=== PATIENT | male | born 1985 | race Caucasian/White ===

== ENCOUNTER 2018-02-05 17:28 | Observation (INO) | payer SELFPAY ==
[2018-02-05] MEDS ORDERED: Ondansetron 4 MG/2 ML SDV IVPUSH ONE (17:55)
[2018-02-05] MEDS ORDERED: Sodium Chloride 0.9% 1,000 ML IV ONE ×3 (17:55→22:59)
--- NOTE | 2018-02-05 17:57 | EDM.PDOC ---
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 Since he is fairly heat intolerant, he is up here for work which he starts tomorrow. After being outside for short periods in the ED because?shaky and nauseous, he has not been able to keep most foods down however he has been able to keep fruits down. At rest he has no symptoms as below however he states on standing he does become nauseous No fever chills sweats no chest pain shortness breath headache dizziness palpitation about a urine symptoms ] Review of systems: As per history of present illness and below otherwise all systems reviewed and negative. Past medical history: As per history of present illness and as reviewed below otherwise noncontributory. Surgical history: As per history of present illness and as reviewed below otherwise noncontributory. Social history: No reported history of drug or alcohol abuse. Family history: As per history of present illness and as reviewed below otherwise noncontributory. Physical exam: HEENT: Atraumatic, normocephalic, pupils reactive, negative for conjunctival pallor or scleral icterus, mucous membranes moist, throat clear, neck supple, nontender, trachea midline. Lungs: Clear to auscultation, breath sounds equal bilaterally, chest nontender. Heart: S1S2, regular, negative for clicks, rubs, or JVD. Abdomen: Soft, nondistended, nontender. Negative for masses or hepatosplenomegaly. Negative for costovertebral tenderness. Pelvis: Stable nontender. Genitourinary: Deferred. Rectal: Deferred. Extremities: Atraumatic, negative for cords or calf pain. Neurovascular unremarkable. Neuro: Awake, alert, oriented. Cranial nerves II through XII unremarkable. Cerebellum unremarkable. Motor and sensory unremarkable throughout. Exam nonfocal. Diagnostics: [CBC CMP UA CPK troponin EKG ] Therapeutics: [ liter normal saline Zofran 8 mg IV ] Impression: [ vomiting ] Definitive disposition and diagnosis as appropriate pending reevaluation and review of above. - Related Data Allergies Allergy/AdvReac Type Severity Reaction Status Date / Time Penicillins Allergy Other Verified 02/05/18 18:50 Home Meds: Home Meds Calcium Carb/Magnesium Hydrox [Rolaids Chewable Tablet] 1 tab PO Q2HR PRN [History] Course - Vital Signs Last Recorded V/S: Last Vital Signs Temp 36.4 C 02/05/18 18:46 Pulse 84 02/05/18 18:46 Resp 18 02/05/18 18:46 BP 130/95 H 02/05/18 18:46 Pulse Ox 95 02/05/18 18:46 - Orders/Labs/Meds Orders: Active Orders 24 hr Category Date Time Status EKG Documentation Completion [RC] STAT Care 02/05/18 17:34 Inactive EKG Documentation Completion [RC] STAT Care 02/05/18 18:17 Active UA W/MICROSCOPIC [URIN] Stat Lab 02/05/18 17:34 Ordered Sodium Chloride 0.9% [Normal Saline] 1,000 ml Med 02/05/18 19:05 Active IV STAT Medication Orders Sodium Chloride (Normal Saline) 1,000 mls @ 999 mls/hr IV STAT ONE Stop: 02/05/18 20:05 Last Admin: 02/05/18 19:27 Dose: 999 mls/hr Labs: Laboratory Tests 02/05/18 02/05/18 02/05/18 Range/Units 17:04 17:54 17:54 WBC 5.65 (4.0-11.0) K/uL RBC 5.66 (4.50-5.90) M/uL Hgb 19.0 H (13.0-17.0) g/dL Hct 52.7 H (38.0-50.0) % MCV 93.1 (80.0-98.0) fL MCH 33.6 H (27.0-32.0) pg MCHC 36.1 (31.0-37.0) g/dL RDW Std Deviation 44.0 (28.0-62.0) fl RDW Coeff of Jennifer 13 (11.0-15.0) % Plt Count 255 (150-400) K/uL MPV 10.00 (7.40-12.00) fL Neut % (Auto) 56.7 (48.0-80.0) % Lymph % (Auto) 23.5 (16.0-40.0) % [place] % (Auto) 18.1 H (0.0-15.0) % Eos % (Auto) 1.2 (0.0-7.0) % Baso % (Auto) 0.5 (0.0-1.5) % Neut # (Auto) 3.2 (1.4-5.7) K/uL Lymph # (Auto) 1.3 (0.6-2.4) K/uL [place] # (Auto) 1.0 H (0.0-0.8) K/uL Eos # (Auto) 0.1 (0.0-0.7) K/uL Baso # (Auto) 0.0 (0.0-0.1) K/uL Nucleated RBC % 0.0 /100WBC Nucleated RBCs # 0 K/uL Sodium 137 (136-148) mmol/L Potassium 3.8 (3.5-5.1) mmol/L Chloride 100 (98-107) mmol/L Carbon Dioxide 24.0 (21.0-32.0) mmol/L BUN 22 H (7.0-18.0) mg/dL Creatinine 1.6 H (0.8-1.3) mg/dL Est Cr Clr Drug Dosing 86.22 mL/min Estimated GFR (MDRD) 49.7 ml/min Glucose 120 H (74-106) mg/dL Calcium 9.4 (8.5-10.1) mg/dL Total Bilirubin 0.6 (0.2-1.0) mg/dL AST 44 H (15-37) IU/L ALT 62 (14-63) IU/L Alkaline Phosphatase 58 (46-116) U/L Creatine Kinase 907 H (26-308) U/L Troponin I < 0.050 (0.000-0.056) ng/mL Total Protein 8.7 H (6.4-8.2) g/dL Albumin 4.6 (3.4-5.0) g/dL Globulin 4.1 H (2.0-3.5) g/dL Albumin/Globulin Ratio 1.1 L (1.3-2.8) Meds: Medications Generic Name Dose Route Start Last Admin Trade Name Nieves PRN Reason Stop Dose Admin Sodium Chloride 1,000 mls @ 999 mls/hr 02/05/18 19:05 02/05/18 19:27 Normal Saline IV 02/05/18 20:05 999 mls/hr STAT ONE Administration Discontinued Medications Generic Name Dose Route Start Last Admin Trade Name Nieves PRN Reason Stop Dose Admin Sodium Chloride 1,000 mls @ 999 mls/hr 02/05/18 17:55 02/05/18 18:04 Normal Saline IV 02/05/18 18:55 999 mls/hr STAT ONE Administration Ondansetron HCl 8 mg 02/05/18 17:55 02/05/18 18:04 Zofran IVPUSH 02/05/18 17:56 8 mg ONETIME ONE Administration Departure - Departure Disposition: Refer to Observation Clinical Impression: Dehydration - Discharge Information Referrals: PCP,None [Primary Care Provider] - Forms: ED Department Discharge - My Orders Last 24 Hours: My Active Orders 02/05/18 19:05 Sodium Chloride 0.9% [Normal Saline] 1,000 ml IV STAT - Assessment/Plan Last 24 Hours: My Active Orders 02/05/18 19:05 Sodium Chloride 0.9% [Normal Saline] 1,000 ml IV STAT <John Martinez - Last Filed: 02/05/18 19:41> ED HPI GENERAL MEDICAL PROBLEM - History of Present Illness INITIAL COMMENTS - FREE TEXT/NARRATIVE: Patient's emergency department course is been unremarkable he does feel better labs for CK of 900 patient is a second liter of normal saline going at this time and will be admitted as 23 hours observation for dehydration ED ROS GENERAL - Review of Systems Review Of Systems: ROS reveals no pertinent complaints other than HPI. ED EXAM, GENERAL - Physical Exam Exam: See Below (See dictation) Departure - Departure Time of Disposition: 19:39 Condition: Good
[2018-02-05] MEDS ORDERED: Ondansetron 4 MG/2 ML SDV IVPUSH PRN (20:27)
[2018-02-05] MEDS: Sodium Chloride 0.9% 1,000 ML IV SCH (20:44)
--- NOTE | 2018-02-05 23:02 | PCM.HP ---
H&P History of Present Illness - General Admit Problem/Dx: Admission Diagnosis/Problem Admission Diagnosis/Problem Dehydration - History of Present Illness Initial Comments - Free Text/Narative: 32 yo male who had been working outside in the heat for four days. Patient presents with nausea, vomiting and generalized fatigue. Patient reports unable to keep fluids down. He reports a history of acute kidney injury three years ago due to working in the sun fro to long. He hopes he came in earlier this time. - Related Data Allergies/Adverse Reactions: Allergies Allergy/AdvReac Type Severity Reaction Status Date / Time Penicillins Allergy Other Verified 02/05/18 18:50 Home Medications: Home Meds Calcium Carb/Magnesium Hydrox [Rolaids Chewable Tablet] 1 tab PO Q2HR PRN [History] Past Medical History Respiratory History: Reports: Other (See Below) Other Respiratory History: chest tubes - Past Surgical History Musculoskeletal Surgical History: Reports: Other (See Below) Other Musculoskeletal Surgeries/Procedures:: toe spurs Social & Family History - Family History Family Medical History: Noncontributory - Tobacco Use Smoking Status *Q: Current Every Day Smoker Years of Tobacco use: 10 Packs/Tins Daily: 0.5 Used Tobacco, but Quit: No Second Hand Smoke Exposure: No - Caffeine Use Caffeine Use: Reports: Tea, Other Other Caffeine Use: Gatorade - Recreational Drug Use Recreational Drug Use: No H&P Review of Systems - Review of Systems: Review Of Systems: ROS reveals no pertinent complaints other than HPI. Exam - Vital Signs Vital Signs: Last Vital Signs Temp 36.8 C 02/05/18 20:20 Pulse 71 02/05/18 20:20 Resp 18 02/05/18 20:20 BP 131/94 H 02/05/18 20:20 Pulse Ox 97 02/05/18 20:20 Weight: 104.5 kg - Exam General: Alert, Oriented HEENT: Mucosa Moist & [place] Lungs: Clear to Auscultation, Normal Respiratory Effort Cardiovascular: Regular Rate GI/Abdominal Exam: Soft, Non-Tender, No Distention Extremities: Non-Tender, No Pedal Edema Skin: Warm, Dry, Intact - Patient Data Lab Results Last 24 hrs: Laboratory Results - last 24 hr 02/05/18 02/05/18 02/05/18 Range/Units 17:04 17:54 17:54 WBC 5.65 (4.0-11.0) K/uL RBC 5.66 (4.50-5.90) M/uL Hgb 19.0 H (13.0-17.0) g/dL Hct 52.7 H (38.0-50.0) % MCV 93.1 (80.0-98.0) fL MCH 33.6 H (27.0-32.0) pg MCHC 36.1 (31.0-37.0) g/dL RDW Std Deviation 44.0 (28.0-62.0) fl RDW Coeff of Jennifer 13 (11.0-15.0) % Plt Count 255 (150-400) K/uL MPV 10.00 (7.40-12.00) fL Neut % (Auto) 56.7 (48.0-80.0) % Lymph % (Auto) 23.5 (16.0-40.0) % [place] % (Auto) 18.1 H (0.0-15.0) % Eos % (Auto) 1.2 (0.0-7.0) % Baso % (Auto) 0.5 (0.0-1.5) % Neut # (Auto) 3.2 (1.4-5.7) K/uL Lymph # (Auto) 1.3 (0.6-2.4) K/uL [place] # (Auto) 1.0 H (0.0-0.8) K/uL Eos # (Auto) 0.1 (0.0-0.7) K/uL Baso # (Auto) 0.0 (0.0-0.1) K/uL Nucleated RBC % 0.0 /100WBC Nucleated RBCs # 0 K/uL Sodium 137 (136-148) mmol/L Potassium 3.8 (3.5-5.1) mmol/L Chloride 100 (98-107) mmol/L Carbon Dioxide 24.0 (21.0-32.0) mmol/L BUN 22 H (7.0-18.0) mg/dL Creatinine 1.6 H (0.8-1.3) mg/dL Est Cr Clr Drug Dosing 86.22 mL/min Estimated GFR (MDRD) 49.7 ml/min Glucose 120 H (74-106) mg/dL Calcium 9.4 (8.5-10.1) mg/dL Total Bilirubin 0.6 (0.2-1.0) mg/dL AST 44 H (15-37) IU/L ALT 62 (14-63) IU/L Alkaline Phosphatase 58 (46-116) U/L Creatine Kinase 907 H (26-308) U/L Troponin I < 0.050 (0.000-0.056) ng/mL Total Protein 8.7 H (6.4-8.2) g/dL Albumin 4.6 (3.4-5.0) g/dL Globulin 4.1 H (2.0-3.5) g/dL Albumin/Globulin Ratio 1.1 L (1.3-2.8) Result Diagrams: 02/05/18 17:54 02/05/18 17:54 Problem List Initiated/Reviewed/Updated: Yes Orders Last 24hrs: Active Orders 24 hr Category Date Time Status Patient Status [ADT] Stat ADT 02/05/18 19:41 Active EKG Documentation Completion [RC] STAT Care 02/05/18 17:34 Inactive Regular Diet [DIET] Diet 02/06/18 Breakfast Active BASIC METABOLIC PANEL,BMP [CHEM] Routine Lab 02/06/18 05:00 Ordered CBC WITH AUTO DIFF [HEME] Routine Lab 02/06/18 05:00 Ordered CREATINE KINASE,CK [CHEM] Routine Lab 02/06/18 05:00 Ordered UA W/MICROSCOPIC [URIN] Stat Lab 02/05/18 17:34 Ordered Ondansetron [Zofran] Med 02/05/18 20:27 Active 4 mg IVPUSH Q3H PRN Sodium Chloride 0.9% [Normal Saline] 1,000 ml Med 02/05/18 22:59 Ordered IV .Bolus Sodium Chloride 0.9% [Normal Saline] 1,000 ml Med 02/05/18 20:30 Active IV ASDIRECTED Medication Orders Sodium Chloride (Normal Saline) 1,000 mls @ 150 mls/hr IV ASDIRECTED SUYAPA Last Admin: 02/05/18 20:44 Dose: 150 mls/hr Ondansetron HCl (Zofran) 4 mg IVPUSH Q3H PRN PRN Reason: Nausea/Vomiting Assessment/Plan Comment:: 32 yo male admitted with dehydration, we will hydrate with IV fluids and treat with antiemetics prn.
[2018-02-06] MEDS: Sodium Chloride 0.9% 1,000 ML IV SCH ×2 (02:55→09:56)
[2018-02-06 05:57] LABS: CHLORIDE,CL 109 mmol/L (98-107); SODIUM,NA 142 mmol/L (136-148)
[2018-02-06] MEDS ORDERED: Acetaminophen 325 MG Tab PO PRN (08:00)
[2018-02-06] MEDS ORDERED: Pantoprazole 40 MG Vial IVPUSH SCH (09:30)
--- NOTE | 2018-02-06 11:13 | PCM.DCSUM1 ---
Discharge Summary - Hospital Course Brief History: 32 yo male who had been working outside in the heat for four days. Patient presents with nausea, vomiting and generalized fatigue. Patient reports unable to keep fluids down. He reports a history of acute kidney injury three years ago due to working in the sun for to long. He hopes he came in earlier this time. - Discharge Data Discharge Date: 02/06/18 Discharge Disposition: Home, Self-Care 01 Condition: Good - Patient Instructions Diet: Regular Diet as Tolerated Activity: As Tolerated, No Strenuous Activities (stay out of heat today and tomorrow. When working highly encouraged to drink large amount of water to stay hydrated) Showering/Bathing: December Shower Notify Provider of: Fever, Increased Pain, Swelling and Redness, Drainage, Nausea and/or Vomiting - Discharge Plan Prescriptions/Med Rec: Pantoprazole Sodium [Protonix] 40 mg PO DAILY #30 tablet. Home Medications: Home Meds Calcium Carb/Magnesium Hydrox [Rolaids Chewable Tablet] 1 tab PO Q2HR PRN [History] Pantoprazole Sodium [Protonix] 40 mg PO DAILY #30 tablet. 02/06/18 [Rx] Patient Handouts: Dehydration, Adult, [id number] Referrals: Abdiel Burr MD [Resident] - 02/13/18 2:30 pm Molina Henley MD [Physician] - 02/14/18 10:30 am - Discharge Summary/Plan Comment DC Time >30 min.: No Discharge Summary/Plan Comment: Discharge Diagnoses: Dehydration GHADA- resolved GERD Jarad was admitted with dehydration and mildly elevated CPK. He was treated with ZOfran adn IVFs. Today CPK has decreased to 656. He is tolerating diet and keeping fluids down. No longer nauseated. BUN 17 Cr 1.3. He is requesting to be discharged home today. He will be discharged home, but encouraged not to exercise or work for the next few days and to hydrate with water. His mother reports he drinks strictly sweet tea all the time. He was encouraged to stop drinking this or at least limit this. When he is working in the heat he should be drinking large amounts of water and may add in Gatorade or Powerade especially when sweating a lot. He verbalizes understanding. 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 He asked about some history of dark stools and GERD. He reports taking a lot of Rolaids and TUMS due to this. He reports being told he has ulcers, but never started on medication. I will prescribed Protonix 40 mg daily and refer him to general surgery to be evaluated and potentially have EGD. He reports stool this morning was mainly brown. Hgb 15.5 today. He was encouraged to return to ED or clinic if concerns should arise or dark stools return and he feels lightheaded or dizzy. He will also be set up for follow up with a PCP in 1 week. - General Info Date of Service: 02/06/18 Admission Dx/Problem (Free Text: Admission Diagnosis/Problem Admission Diagnosis/Problem Dehydration Subjective Update: Feeling better this morning, requesting discharge home. Denies any concerns Functional Status: Reports: Pain Controlled, Tolerating Diet, Ambulating, Urinating - Review of Systems General: Reports: No Symptoms. Denies: Fever, Weakness, Fatigue, Malaise Pulmonary: Reports: No Symptoms. Denies: Shortness of Breath Cardiovascular: Reports: No Symptoms. Denies: Chest Pain, Orthopnea, Edema Gastrointestinal: Reports: No Symptoms. Denies: Abdominal Pain, Constipation, Diarrhea, Nausea, Vomiting Genitourinary: Reports: No Symptoms. Denies: Dysuria, Frequency, Burning Musculoskeletal: Reports: No Symptoms Neurological: Reports: No Symptoms Psychiatric: Reports: No Symptoms - Patient Data Vitals - Most Recent: Last Vital Signs Temp 97.3 F 02/06/18 07:39 Pulse 59 L 02/06/18 07:39 Resp 17 02/06/18 07:39 BP 117/65 02/06/18 07:39 Pulse Ox 99 02/06/18 07:39 Weight - Most Recent: 104.5 kg I&O - Last 24 hours: Intake & Output 02/05/18 02/06/18 02/06/18 22:59 06:59 14:59 Intake Total 2663 734 Output Total 300 Balance 2363 734 Lab Results - Last 24 hrs: Laboratory Results - last 24 hr 02/05/18 02/05/18 02/05/18 Range/Units 17:04 17:54 17:54 WBC 5.65 (4.0-11.0) K/uL RBC 5.66 (4.50-5.90) M/uL Hgb 19.0 H (13.0-17.0) g/dL Hct 52.7 H (38.0-50.0) % MCV 93.1 (80.0-98.0) fL MCH 33.6 H (27.0-32.0) pg MCHC 36.1 (31.0-37.0) g/dL RDW Std Deviation 44.0 (28.0-62.0) fl RDW Coeff of Jennifer 13 (11.0-15.0) % Plt Count 255 (150-400) K/uL MPV 10.00 (7.40-12.00) fL Neut % (Auto) 56.7 (48.0-80.0) % Lymph % (Auto) 23.5 (16.0-40.0) % [place] % (Auto) 18.1 H (0.0-15.0) % Eos % (Auto) 1.2 (0.0-7.0) % Baso % (Auto) 0.5 (0.0-1.5) % Neut # (Auto) 3.2 (1.4-5.7) K/uL Lymph # (Auto) 1.3 (0.6-2.4) K/uL [place] # (Auto) 1.0 H (0.0-0.8) K/uL Eos # (Auto) 0.1 (0.0-0.7) K/uL Baso # (Auto) 0.0 (0.0-0.1) K/uL Nucleated RBC % 0.0 /100WBC Nucleated RBCs # 0 K/uL Sodium 137 (136-148) mmol/L Potassium 3.8 (3.5-5.1) mmol/L Chloride 100 (98-107) mmol/L Carbon Dioxide 24.0 (21.0-32.0) mmol/L BUN 22 H (7.0-18.0) mg/dL Creatinine 1.6 H (0.8-1.3) mg/dL Est Cr Clr Drug Dosing 86.22 mL/min Estimated GFR (MDRD) 49.7 ml/min Glucose 120 H (74-106) mg/dL Calcium 9.4 (8.5-10.1) mg/dL Total Bilirubin 0.6 (0.2-1.0) mg/dL AST 44 H (15-37) IU/L ALT 62 (14-63) IU/L Alkaline Phosphatase 58 (46-116) U/L Creatine Kinase 907 H (26-308) U/L Troponin I < 0.050 (0.000-0.056) ng/mL Total Protein 8.7 H (6.4-8.2) g/dL Albumin 4.6 (3.4-5.0) g/dL Globulin 4.1 H (2.0-3.5) g/dL Albumin/Globulin Ratio 1.1 L (1.3-2.8) Urine Color Urine Appearance Urine pH (5.0-8.0) Ur Specific [place] (1.001-1.035) Urine Protein (NEGATIVE) mg/dL Urine Glucose (UA) (NEGATIVE) mg/dL Urine Ketones (NEGATIVE) mg/dL Urine Occult Blood (NEGATIVE) Urine Nitrite (NEGATIVE) Urine Bilirubin (NEGATIVE) Urine Urobilinogen (<2.0) EU/dL Ur Leukocyte Esterase (NEGATIVE) Urine RBC (0-2/HPF) Urine WBC (0-5/HPF) Ur Epithelial Cells (NONE-FEW) Urine Bacteria (NEGATIVE) 02/05/18 02/06/18 02/06/18 Range/Units 23:13 04:55 04:55 WBC 4.53 (4.0-11.0) K/uL RBC 4.79 (4.50-5.90) M/uL Hgb 15.5 (13.0-17.0) g/dL Hct 45.0 (38.0-50.0) % MCV 93.9 (80.0-98.0) fL MCH 32.4 H (27.0-32.0) pg MCHC 34.4 (31.0-37.0) g/dL RDW Std Deviation 45.0 (28.0-62.0) fl RDW Coeff of Jennifer 13 (11.0-15.0) % Plt Count 217 (150-400) K/uL MPV 10.10 (7.40-12.00) fL Neut % (Auto) 40.7 L (48.0-80.0) % Lymph % (Auto) 39.1 (16.0-40.0) % [place] % (Auto) 14.6 (0.0-15.0) % Eos % (Auto) 4.9 (0.0-7.0) % Baso % (Auto) 0.7 (0.0-1.5) % Neut # (Auto) 1.9 (1.4-5.7) K/uL Lymph # (Auto) 1.8 (0.6-2.4) K/uL [place] # (Auto) 0.7 (0.0-0.8) K/uL Eos # (Auto) 0.2 (0.0-0.7) K/uL Baso # (Auto) 0.0 (0.0-0.1) K/uL Nucleated RBC % 0.0 /100WBC Nucleated RBCs # 0 K/uL Sodium 142 (136-148) mmol/L Potassium 4.3 (3.5-5.1) mmol/L Chloride 109 H (98-107) mmol/L Carbon Dioxide 25.4 (21.0-32.0) mmol/L BUN 17 (7.0-18.0) mg/dL Creatinine 1.3 (0.8-1.3) mg/dL Est Cr Clr Drug Dosing 106.11 mL/min Estimated GFR (MDRD) > 60.0 ml/min Glucose 100 (74-106) mg/dL Calcium 8.0 L (8.5-10.1) mg/dL Total Bilirubin (0.2-1.0) mg/dL AST (15-37) IU/L ALT (14-63) IU/L Alkaline Phosphatase (46-116) U/L Creatine Kinase 656 H (26-308) U/L Troponin I (0.000-0.056) ng/mL Total Protein (6.4-8.2) g/dL Albumin (3.4-5.0) g/dL Globulin (2.0-3.5) g/dL Albumin/Globulin Ratio (1.3-2.8) Urine Color YELLOW Urine Appearance CLEAR Urine pH 6.0 (5.0-8.0) Ur Specific [place] 1.020 (1.001-1.035) Urine Protein NEGATIVE (NEGATIVE) mg/dL Urine Glucose (UA) NEGATIVE (NEGATIVE) mg/dL Urine Ketones NEGATIVE (NEGATIVE) mg/dL Urine Occult Blood NEGATIVE (NEGATIVE) Urine Nitrite NEGATIVE (NEGATIVE) Urine Bilirubin NEGATIVE (NEGATIVE) Urine Urobilinogen 1.0 (<2.0) EU/dL Ur Leukocyte Esterase NEGATIVE (NEGATIVE) Urine RBC 0-1 (0-2/HPF) Urine WBC 0-2 (0-5/HPF) Ur Epithelial Cells RARE (NONE-FEW) Urine Bacteria FEW (NEGATIVE) Med Orders - Current: Current Medications Acetaminophen (Tylenol) 650 mg PO Q4H PRN PRN Reason: Pain (mild 1-3) Sodium Chloride (Normal Saline) 1,000 mls @ 150 mls/hr IV ASDIRECTED [facility] Last Admin: 02/06/18 09:56 Dose: 150 mls/hr Ondansetron HCl (Zofran) 4 mg IVPUSH Q3H PRN PRN Reason: Nausea/Vomiting Pantoprazole Sodium (Protonix Iv) 40 mg IVPUSH Q24H [facility] Last Admin: 02/06/18 09:59 Dose: 40 mg Discontinued Medications Sodium Chloride (Normal Saline) 1,000 mls @ 999 mls/hr IV STAT ONE Stop: 02/05/18 18:55 Last Admin: 02/05/18 18:04 Dose: 999 mls/hr Sodium Chloride (Normal Saline) 1,000 mls @ 999 mls/hr IV STAT ONE Stop: 02/05/18 20:05 Last Admin: 02/05/18 19:27 Dose: 999 mls/hr Sodium Chloride (Normal Saline) 1,000 mls @ 1,000 mls/hr IV ONETIME ONE Stop: 02/05/18 23:58 Last Infusion: 02/06/18 00:45 Dose: Infused Ondansetron HCl (Zofran) 8 mg IVPUSH ONETIME ONE Stop: 02/05/18 17:56 Last Admin: 02/05/18 18:04 Dose: 8 mg - Exam General: Reports: Alert, Oriented Neck: Reports: Supple Lungs: Reports: Clear to Auscultation, Normal Respiratory Effort Cardiovascular: Reports: Regular Rate, Regular Rhythm GI/Abdominal Exam: Normal Bowel Sounds, Soft, Non-Tender, No Organomegaly, No Distention, No Abnormal Bruit, No Mass, Pelvis Stable Neurological: Reports: No New Focal Deficit Psy/Mental Status: Reports: Alert, Normal Affect, Normal Mood
== END 2018-02-06 00:20 | disposition home or self-care (01) ==
LOC: MW.ED 17:28 → MW.MS 20:04
PROVIDERS: ADMIT Internal Medicine; ATTEND Internal Medicine
DX: E86.0 Dehydration (principal); K21.9 Gastro-esophageal reflux disease without esophagitis; F17.200 Nicotine dependence, unspecified, uncomplicated; Z87.448 Personal history of other diseases of urinary system; Z79.899 Other long term (current) drug therapy; Z88.0 Allergy status to penicillin
CPT/HCPCS: 36415; 80048; 80053; 81001; 82550; 84484; 85025; 96361; 96374; 96375; 99285; C9113; G0378; J2405; J7040; 99283

== ENCOUNTER 2018-05-22 21:58 | Emergency (ER) | payer OTHER ==
--- NOTE | 2018-05-22 22:14 | EDM.PDOC ---
ED HPI GENERAL MEDICAL PROBLEM - General Chief Complaint: Genitourinary Problem Stated Complaint: COMPALINING OF A UTI Time Seen by Provider: 05/22/18 22:09 - History of Present Illness INITIAL COMMENTS - FREE TEXT/NARRATIVE: HISTORY AND PHYSICAL: History of present illness: Patient's a 32-year-old white male presents with a concern of dysuria and penile discharge over last week he has no concerns about sexually transmitted diseases and states he is in a monogamous relationship with his and is not worried about her and she has not reported any symptoms Review of systems: As per history of present illness and below otherwise all systems reviewed and negative. Past medical history: As per history of present illness and as reviewed below otherwise noncontributory. Surgical history: As per history of present illness and as reviewed below otherwise noncontributory. Social history: No reported history of drug or alcohol abuse. Family history: As per history of present illness and as reviewed below otherwise noncontributory. Physical exam: HEENT: Atraumatic, normocephalic, pupils reactive, negative for conjunctival pallor or scleral icterus, mucous membranes moist, throat clear, neck supple, nontender, trachea midline. Lungs: Clear to auscultation, breath sounds equal bilaterally, chest nontender. Heart: S1S2, regular, negative for clicks, rubs, or JVD. Abdomen: Soft, nondistended, nontender. Negative for masses or hepatosplenomegaly. Negative for costovertebral tenderness. Pelvis: Stable nontender. Genitourinary: Deferred. Rectal: Deferred. Extremities: Atraumatic, negative for cords or calf pain. Neurovascular unremarkable. Neuro: Awake, alert, oriented. Cranial nerves II through XII unremarkable. Cerebellum unremarkable. Motor and sensory unremarkable throughout. Exam nonfocal. Diagnostics: UA urine culture and sensitivity urine for GC and Chlamydia Therapeutics: Rocephin 250 mg IM Impression: #1 urethritis Definitive disposition and diagnosis as appropriate pending reevaluation and review of above. lower back Pain Score (Numeric/FACES): 6 - Related Data Allergies Allergy/AdvReac Type Severity Reaction Status Date / Time Penicillins Allergy Other Verified 05/22/18 22:08 Home Meds: Home Meds Calcium Carb/Magnesium Hydrox [Rolaids Chewable Tablet] 1 tab PO Q2HR PRN [History] Pantoprazole Sodium [Protonix] 40 mg PO DAILY #30 tablet. 02/06/18 [Rx] Past Medical History Respiratory History: Reports: Other (See Below) Other Respiratory History: chest tubes - Past Surgical History Musculoskeletal Surgical History: Reports: Other (See Below) Other Musculoskeletal Surgeries/Procedures:: toe spurs Social & Family History - Family History Family Medical History: Noncontributory - Caffeine Use Caffeine Use: Reports: Tea, Other Other Caffeine Use: Gatorade ED ROS GENERAL - Review of Systems Review Of Systems: ROS reveals no pertinent complaints other than HPI. ED EXAM, GENERAL - Physical Exam Exam: See Below (See dictation) Course - Vital Signs Last Recorded V/S: Last Vital Signs Temp 36.8 C 05/22/18 22:08 Pulse 102 H 05/22/18 22:08 Resp 20 05/22/18 22:08 BP 138/81 05/22/18 22:08 Pulse Ox 100 05/22/18 22:08 - Orders/Labs/Meds Orders: Active Orders 24 hr Category Date Time Status CHLAMYDIA AND GONORRHEA BY TMA Stat Lab 05/22/18 22:14 Ordered CULTURE URINE [RM] Stat Lab 05/22/18 22:14 Ordered UA W/MICROSCOPIC [URIN] Stat Lab 05/22/18 22:14 Ordered Departure - Departure Time of Disposition: 22:28 Disposition: Home, Self-Care 01 Condition: Good Clinical Impression: Urethritis - Discharge Information *PRESCRIPTION DRUG MONITORING PROGRAM REVIEWED*: Not Applicable *COPY OF PRESCRIPTION DRUG MONITORING REPORT IN PATIENT MARCO: Not Applicable Referrals: PCP,None [Primary Care Provider] - Forms: ED Department Discharge Additional Instructions: The following information is given to patients seen in the emergency department who are being discharged to home. This information is to outline your options for follow-up care. We provide all patients seen in our emergency department with a follow-up referral. The need for follow-up, as well as the timing and circumstances, are variable depending upon the specifics of your emergency department visit. If you don't have a primary care physician on staff, we will provide you with a referral. We always advise you to contact your personal physician following an emergency department visit to inform them of the circumstance of the visit and for follow-up with them and/or the need for any referrals to a consulting specialist. The emergency department will also refer you to a specialist when appropriate. This referral assures that you have the opportunity for followup care with a specialist. All of these measure are taken in an effort to provide you with optimal care, which includes your followup. Under all circumstances we always encourage you to contact your private physician who remains a resource for coordinating your care. When calling for followup care, please make the office aware that this follow-up is from your recent emergency room visit. If for any reason you are refused follow-up, please contact the [facility] emergency department at and asked to speak to the emergency department charge nurse. [facility] - Urology [address] [place] [id number] Follow-up urology above is discussed doxycycline as prescribed partners to be screened and evaluated as needed as discussed - My Orders Last 24 Hours: My Active Orders 05/22/18 22:14 CHLAMYDIA AND GONORRHEA BY TMA Stat CULTURE URINE [RM] Stat UA W/MICROSCOPIC [URIN] Stat - Assessment/Plan Last 24 Hours: My Active Orders 05/22/18 22:14 CHLAMYDIA AND GONORRHEA BY TMA Stat CULTURE URINE [RM] Stat UA W/MICROSCOPIC [URIN] Stat
== END 2018-05-22 22:54 | disposition home or self-care (01) ==
LOC: MW.ED 21:58
DX: N34.2 Other urethritis (principal); Z88.0 Allergy status to penicillin; Z79.899 Other long term (current) drug therapy
CPT/HCPCS: 87491; 87591; 99283

== ENCOUNTER 2019-07-28 14:00 | Emergency (ER) | payer SELFPAY ==
[2019-07-28] MEDS ORDERED: Ondansetron 4 MG/2 ML SDV IVPUSH ONE ×2 (14:02→14:27)
[2019-07-28] MEDS ORDERED: Sodium Chloride 0.9% 1,000 ML IV ONE (14:02)
--- NOTE | 2019-07-28 14:31 | EDM.PDOC ---
ED HPI GENERAL MEDICAL PROBLEM - General Chief Complaint: Gastrointestinal Problem Stated Complaint: UNABLE TO EAT, VOMITING, WEAK Time Seen by Provider: 07/28/19 14:03 Source of Information: Reports: Patient History Limitations: Reports: No Limitations - History of Present Illness INITIAL COMMENTS - FREE TEXT/NARRATIVE: HISTORY AND PHYSICAL: History of present illness: Patient is a 23-year-old male who presents to the emergency room with complaints of weakness, nausea and vomiting. Patient states he was back home approximately 12 days ago when he smoked "spice". He states that he believes is safe for him to smoke while he is on his days off, as it does not show up on a drug screen. He states he's smoked spice in the past and has never had any problems with it previous. He states since smoking spice he has had nausea and vomiting and has not been able to keep any food or liquids down. He says the lack of food and water has caused him to become weak and feel dizzy when he stands too quickly. Denies any other alcohol or drug abuse. Patient denies any fever, chills, headache, change in vision, syncope or near syncope. Denies any chest pain, back pain, shortness of breath or cough. Denies any abdominal pain, diarrhea, constipation or dysuria. Has not noted any blood in urine or stool. Patient has been eating and drinking appropriately. Review of systems: As per history of present illness and below otherwise all systems reviewed and negative. Past medical history: As per history of present illness and as reviewed below otherwise noncontributory. Surgical history: As per history of present illness and as reviewed below otherwise noncontributory. Social history: See social history for further information Family history: As per history of present illness and as reviewed below otherwise noncontributory. Physical exam: General: Well-developed and well-nourished 33-year-old male. Alert and oriented. Nontoxic appearing and in no acute distress. HEENT: Atraumatic, normocephalic, pupils equal and reactive bilaterally, negative for conjunctival pallor or scleral icterus, mucous membranes dry TMs normal bilaterally, throat clear, neck supple, nontender, trachea midline. No drooling or trismus noted. No meningeal signs. No hot potato voice noted. Lungs: Clear to auscultation, breath sounds equal bilaterally, chest nontender. Heart: S1S2, regular rate and rhythm without overt murmur Abdomen: Soft, nondistended, nontender. Negative for masses or hepatosplenomegaly. Negative for costovertebral tenderness. Pelvis: Stable nontender. Skin: Intact, warm, dry. No lesions or rashes noted. Extremities: Atraumatic, moves all extremities per self without difficulty or deficits, negative for cords or calf pain. Neurovascular unremarkable. Neuro: Awake, alert, oriented. Cranial nerves II through XII unremarkable. Cerebellum unremarkable. Motor and sensory unremarkable throughout. Exam nonfocal. Notes: Lab work is unremarkable. Patient states he does feel somewhat improved after the IV fluids and medications. PO challenge has been done while here; he has keep food and fluids down. Supportive care measures were reviewed and discussed. Voices understanding and is agreeable to plan of care. Denies any further questions or concerns at this time. Diagnostics: CBC, CMP, UA, urine drug screen, EKG, one view chest, magnesium Therapeutics: IV fluid, Zofran Prescription: Zofran Impression: Dehydration Nausea Plan: 1. Stop using SPICE or any other drugs. 2. Use the Zofran as needed. Small frequent sips of fluids to prevent dehydration. [place] diet, advance as tolerated. 3. Follow up with your primary care provider. Return to the ED as needed as discussed. Definitive disposition and diagnosis as appropriate pending reevaluation and review of above. - Related Data Allergies Allergy/AdvReac Type Severity Reaction Status Date / Time Penicillins Allergy Other Verified 07/28/19 14:17 Home Meds: Home Meds Esomeprazole Magnesium [Nexium] 20 mg PO ASDIRECTED 07/28/19 [History] Past Medical History Respiratory History: Reports: Other (See Below) Other Respiratory History: chest tubes - Infectious Disease History Infectious Disease History: Reports: None - Past Surgical History Musculoskeletal Surgical History: Reports: Other (See Below) Other Musculoskeletal Surgeries/Procedures:: toe spurs Social & Family History - Family History Family Medical History: Noncontributory - Tobacco Use Smoking Status *Q: Current Every Day Smoker Years of Tobacco use: 10 Packs/Tins Daily: 1 - Caffeine Use Caffeine Use: Reports: Coffee Other Caffeine Use: Gatorade - Recreational Drug Use Recreational Drug Use: Yes Recreational Drug Type: Reports: Marijuana/Hashish Other Recreational Drug Type: Spice Recreational Drug Use Frequency: Rarely ED ROS GENERAL - Review of Systems Review Of Systems: Comprehensive ROS is negative, except as noted in HPI. ED EXAM, GI/ABD - Physical Exam Exam: See Below (See dictation) Course - Vital Signs Last Recorded V/S: Last Vital Signs Temp 96.7 F 07/28/19 14:17 Pulse 111 H 07/28/19 14:17 Resp 16 07/28/19 14:17 BP 124/91 H 07/28/19 14:17 Pulse Ox 97 07/28/19 14:17 - Orders/Labs/Meds Orders: Active Orders 24 hr Category Date Time Status EKG Documentation Completion [RC] STAT Care 07/28/19 14:02 Active DRUG SCREEN, URINE [URCHEM] Stat Lab 07/28/19 14:27 Ordered UA RFX BREANNA AND CULT IF INDIC [URIN] Stat Lab 07/28/19 14:02 Ordered Labs: Laboratory Tests 07/28/19 07/28/19 07/28/19 Range/Units 14:25 14:25 14:25 WBC 6.61 (4.0-11.0) K/uL RBC 5.43 (4.50-5.90) M/uL Hgb 17.7 H (13.0-17.0) g/dL Hct 50.6 H (38.0-50.0) % MCV 93.2 (80.0-98.0) fL MCH 32.6 H (27.0-32.0) pg MCHC 35.0 (31.0-37.0) g/dL RDW Std Deviation 44.6 (28.0-62.0) fl RDW Coeff of Jennifer 13 (11.0-15.0) % Plt Count 266 (150-400) K/uL MPV 10.40 (7.40-12.00) fL Neut % (Auto) 62.6 (48.0-80.0) % Lymph % (Auto) 25.1 (16.0-40.0) % Gentry % (Auto) 10.1 (0.0-15.0) % Eos % (Auto) 1.7 (0.0-7.0) % Baso % (Auto) 0.5 (0.0-1.5) % Neut # (Auto) 4.1 (1.4-5.7) K/uL Lymph # (Auto) 1.7 (0.6-2.4) K/uL Gentry # (Auto) 0.7 (0.0-0.8) K/uL Eos # (Auto) 0.1 (0.0-0.7) K/uL Baso # (Auto) 0.0 (0.0-0.1) K/uL Nucleated RBC % 0.0 /100WBC Nucleated RBCs # 0 K/uL Sodium 141 (136-148) mmol/L Potassium 3.6 (3.5-5.1) mmol/L Chloride 106 (98-107) mmol/L Carbon Dioxide 25.2 (21.0-32.0) mmol/L BUN 14 (7.0-18.0) mg/dL Creatinine 1.4 H (0.8-1.3) mg/dL Est Cr Clr Drug Dosing 97.60 mL/min Estimated GFR (MDRD) 57.7 ml/min Glucose 103 (74-106) mg/dL Calcium 9.1 (8.5-10.1) mg/dL Magnesium 2.2 (1.8-2.4) mg/dL Total Bilirubin 0.6 (0.2-1.0) mg/dL AST 20 (15-37) IU/L ALT 47 (14-63) IU/L Alkaline Phosphatase 60 (46-116) U/L Total Protein 7.9 (6.4-8.2) g/dL Albumin 4.4 (3.4-5.0) g/dL Globulin 3.5 (2.6-4.0) g/dL Albumin/Globulin Ratio 1.3 (0.9-1.6) Lipase (73-393) U/L 07/28/19 Range/Units 14:25 WBC (4.0-11.0) K/uL RBC (4.50-5.90) M/uL Hgb (13.0-17.0) g/dL Hct (38.0-50.0) % MCV (80.0-98.0) fL MCH (27.0-32.0) pg MCHC (31.0-37.0) g/dL RDW Std Deviation (28.0-62.0) fl RDW Coeff of Jennifer (11.0-15.0) % Plt Count (150-400) K/uL MPV (7.40-12.00) fL Neut % (Auto) (48.0-80.0) % Lymph % (Auto) (16.0-40.0) % Gentry % (Auto) (0.0-15.0) % Eos % (Auto) (0.0-7.0) % Baso % (Auto) (0.0-1.5) % Neut # (Auto) (1.4-5.7) K/uL Lymph # (Auto) (0.6-2.4) K/uL Gentry # (Auto) (0.0-0.8) K/uL Eos # (Auto) (0.0-0.7) K/uL Baso # (Auto) (0.0-0.1) K/uL Nucleated RBC % /100WBC Nucleated RBCs # K/uL Sodium (136-148) mmol/L Potassium (3.5-5.1) mmol/L Chloride (98-107) mmol/L Carbon Dioxide (21.0-32.0) mmol/L BUN (7.0-18.0) mg/dL Creatinine (0.8-1.3) mg/dL Est Cr Clr Drug Dosing mL/min Estimated GFR (MDRD) ml/min Glucose (74-106) mg/dL Calcium (8.5-10.1) mg/dL Magnesium (1.8-2.4) mg/dL Total Bilirubin (0.2-1.0) mg/dL AST (15-37) IU/L ALT (14-63) IU/L Alkaline Phosphatase (46-116) U/L Total Protein (6.4-8.2) g/dL Albumin (3.4-5.0) g/dL Globulin (2.6-4.0) g/dL Albumin/Globulin Ratio (0.9-1.6) Lipase 83 (73-393) U/L Meds: Medications Discontinued Medications Generic Name Dose Route Start Last Admin Trade Name Freq PRN Reason Stop Dose Admin Sodium Chloride 1,000 mls @ 999 mls/hr 07/28/19 14:02 07/28/19 14:49 Normal Saline IV 07/28/19 15:02 999 mls/hr STAT ONE Administration Ondansetron HCl 4 mg 07/28/19 14:02 07/28/19 14:50 Zofran IVPUSH 07/28/19 14:03 4 mg ONETIME ONE Administration Ondansetron HCl 4 mg 07/28/19 14:27 07/28/19 14:50 Zofran IVPUSH 07/28/19 14:28 4 mg ONETIME ONE Administration Departure - Departure Time of Disposition: 15:29 Disposition: Home, Self-Care 01 Clinical Impression: Nausea, Dehydration - Discharge Information Referrals: PCP,None [Primary Care Provider] - Forms: ED Department Discharge Additional Instructions: The following information is given to patients seen in the emergency department who are being discharged to home. This information is to outline your options for follow-up care. We provide all patients seen in our emergency department with a follow-up referral. The need for follow-up, as well as the timing and circumstances, are variable depending upon the specifics of your emergency department visit. If you don't have a primary care physician on staff, we will provide you with a referral. We always advise you to contact your personal physician following an emergency department visit to inform them of the circumstance of the visit and for follow-up with them and/or the need for any referrals to a consulting specialist. The emergency department will also refer you to a specialist when appropriate. This referral assures that you have the opportunity for follow-up care with a specialist. All of these measure are taken in an effort to provide you with optimal care, which includes your follow-up. Under all circumstances we always encourage you to contact your private physician who remains a resource for coordinating your care. When calling for follow-up care, please make the office aware that this follow-up is from your recent emergency room visit. If for any reason you are refused follow-up, please contact the [facility] at and asked to speak to the emergency department charge nurse. [facility] [address] [place] [address] [id number] [address] [address] 1. Stop using SPICE and/or any other drugs. 2. Use the Zofran as needed. Small frequent sips of fluids to prevent dehydration. [place] diet, advance as tolerated. 3. Follow up with your primary care provider. Return to the ED as needed as discussed. - My Orders Last 24 Hours: My Active Orders 07/28/19 14:02 EKG Documentation Completion [RC] STAT UA RFX BREANNA AND CULT IF INDIC [URIN] Stat 07/28/19 14:27 DRUG SCREEN, URINE [URCHEM] Stat - Assessment/Plan Last 24 Hours: My Active Orders 07/28/19 14:02 EKG Documentation Completion [RC] STAT UA RFX BREANNA AND CULT IF INDIC [URIN] Stat 07/28/19 14:27 DRUG SCREEN, URINE [URCHEM] Stat
[2019-07-28 15:02] LABS: CARBON DIOXIDE,CO2 25.2 mmol/L (21.0-32.0); POTASSIUM,K 3.6 mmol/L (3.5-5.1)
--- NOTE | 2019-07-28 15:24 | CR ---
Indication: Weakness. Technique: A single AP portable view of the chest. Comparison: None Findings: Blunting of left costophrenic angle is identified, chronic versus acute. Heart is normal in size. The right lung is clear. No pneumothorax is identified. Impression: Acute versus chronic blunting of left costophrenic angle Dictated by Deepthi Joseph MD @ Jul 28 2019 3:21PM Signed by Dr. Deepthi Joseph @ Jul 28 2019 3:22PM
== END 2019-07-28 16:05 | disposition home or self-care (01) ==
LOC: MW.ED 14:00
DX: E86.0 Dehydration (principal); R11.2 Nausea with vomiting, unspecified
CPT/HCPCS: 36415; 71045; 80053; 80305; 81003; 83690; 83735; 85025; 93005; 96361; 96374; 99285; J2405; J7040

== ENCOUNTER 2020-03-01 19:45 | Emergency (ER) | payer SELFPAY ==
[2020-03-01] MEDS ORDERED: Sodium Chloride 0.9% 2.5 ML Syringe FLUSH PRN (19:52)
[2020-03-01] MEDS ORDERED: Sodium Chloride 0.9% 10 ML Syringe FLUSH PRN (19:52)
[2020-03-01] MEDS ORDERED: Lactated Ringers 1,000 ML IV ONE ×2 (19:52→20:50)
[2020-03-01] MEDS ORDERED: LORazepam 2 MG/ML SDV IVPUSH ONE (19:52)
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
[2020-03-01] MEDS ORDERED: Diphtheria,Pertussis(Acell),Tetanus Vaccine 0.5 ML Syringe IM ONE (20:17)
--- NOTE | 2020-03-01 20:25 | CR ---
Indication: Right lower anterior chest pain for 2 years Technique: Chest 1 view Comparison: July 28, 2019 Findings/Impression: Cardiovascular and mediastinum: Heart size and vasculature are normal in caliber and appearance. Mediastinum is within normal limits. Lungs and pleural space: Lungs are clear. No sign of infiltrate or mass. No sign of pleural effusion. No pneumothorax. Bones and soft tissues: There are healed left-sided rib fractures. No acute fracture identified. Dictated by Muriel Ramirez MD @ Mar 01 2020 8:24PM Signed by Dr. Muriel Ramirez @ Mar 01 2020 8:24PM
[2020-03-01 20:50] LABS: BLOOD UREA NITROGEN,BUN 20 mg/dL (7.0-18.0); CARBON DIOXIDE,CO2 17.9 mmol/L (21.0-32.0); CHLORIDE,CL 98 mmol/L (98-107); GLUCOSE RANDOM 104 mg/dL (74-106); SODIUM,NA 138 mmol/L (136-148)
[2020-03-01] MEDS ORDERED: Amoxicillin/Clavulanate K 875-125 MG Tab PO ONE (21:15)
== END 2020-03-01 21:50 ==
LOC: MW.ED 19:45
DX: T75.4XXA Electrocution, initial encounter (principal); S51.851A Open bite of right forearm, initial encounter; S71.132A Puncture wound without foreign body, left thigh, initial encounter; S00.81XA Abrasion of other part of head, initial encounter; E87.2 Acidosis; R79.89 Other specified abnormal findings of blood chemistry; R31.29 Other microscopic hematuria; Z23 Encounter for immunization; Z79.899 Other long term (current) drug therapy; X58.XXXA Exposure to other specified factors, initial encounter
CPT/HCPCS: 36415; 71045; 80053; 80307; 81001; 82803; 83605; 84443; 84484; 85025; 85610; 90471; 90715; 93005; 96374; 99285; A9270; J2060; J7120

== ENCOUNTER → 2022-06-02 | Day surgery (SDC) | payer BC ==
[~2022-06-02] MED LIST: Bupivacaine 0.5% 30 ML SDV ONE; Dexamethasone 4 MG/ML 5 ML MDV ONE; Dexmedetomidine 200 MCG/2 ML SDV ONE; Glycopyrrolate 0.2 MG/ML SDV ONE; HYDROmorphone 2 MG/ML Syringe ONE; Ketorolac 30 MG/ML SDV ONE; Lactated Ringers 1,000 ML IV SCH; Lidocaine 2% 5 ML SDV ONE; Midazolam 1 MG/ML 2 ML SDV ONE; Ondansetron 4 MG/2 ML SDV ONE; Pregabalin 75 MG Cap ONE; Pregabalin 75 MG Cap PO ONE; Propofol 200 MG/20 ML SDV ONE; Rocuronium Bromide 50 MG/5 ML Syringe ONE; Ropivacaine 0.5% 5 MG/ML 30 ML SDV ONE; Sugammadex Sodium 200 MG/2 ML VIAL ONE; Water For Injection, Sterile 20 ML ONE; fentaNYL 100 MCG/2 ML SDV ONE
== END ==
LOC: MW.SDS 06:00
PROVIDERS: ATTEND Surgery
DX: K42.9 Umbilical hernia without obstruction or gangrene (principal); D17.5 Benign lipomatous neoplasm of intra-abdominal organs; K21.9 Gastro-esophageal reflux disease without esophagitis; N17.9 Acute kidney failure, unspecified; F17.210 Nicotine dependence, cigarettes, uncomplicated; Z79.899 Other long term (current) drug therapy; Z98.890 Other specified postprocedural states; Z88.0 Allergy status to penicillin
CPT/HCPCS: 22900; 49585; C1781; J0131; J1100; J1170; J2250; J2405; J2704; J2795; J3010; J3490; J7120; 00750; 64488; J0690

== ENCOUNTER 2023-02-03 09:30 | Emergency (ER) | payer OTHER, BC ==
[2023-02-03] MEDS ORDERED: Diphtheria,Pertussis(Acell),Tetanus Vaccine 0.5 ML Syringe IM ONE (09:58)
[2023-02-03] MEDS ORDERED: Sodium Chloride 0.9% 10 ML Syringe FLUSH PRN (09:59)
[2023-02-03] MEDS ORDERED: Sodium Chloride 0.9% 2.5 ML Syringe FLUSH PRN (09:59)
[2023-02-03] MEDS ORDERED: Morphine 4 MG/ML Syringe IVPUSH STA (10:00)
[2023-02-03 10:11] LABS: BASOPHILS PERCENT AUTO 0.2 % (0.0-1.5); EOSINOPHILS ABSOLUTE AUTO 0.1 K/uL (0.0-0.7); EOSINOPHILS PERCENT AUTO 0.9 % (0.0-7.0); HEMATOCRIT 49.4 % (38.0-50.0); HEMOGLOBIN 16.8 g/dL (13.0-17.0); LYMPHOCYTES ABSOLUTE AUTO 1.2 K/uL (0.6-2.4); LYMPHOCYTES PERCENT AUTO 11.2 % (16.0-40.0); MEAN CORPUSCULAR HEMOGLOBIN 32.4 pg (27.0-32.0); MEAN CORPUSCULAR VOLUME 95.4 fL (80.0-98.0); MONOCYTES PERCENT AUTO 9.1 % (0.0-15.0); NEUTROPHILS ABSOLUTE AUTO 8.4 K/uL (1.4-5.7); NEUTROPHILS PERCENT AUTO 78.6 % (48.0-80.0); NRBC ABSOLUTE 0 K/uL; PLATELET COUNT,PLT 278 K/uL (150-400); RED BLOOD CELL COUNT 5.18 M/uL (4.50-5.90); WHITE BLOOD CELL COUNT,WBC 10.69 K/uL (4.0-11.0)
[2023-02-03 10:38] LABS: A/G RATIO 1.1 (0.9-1.6); ALBUMIN 3.7 g/dL (3.4-5.0); BILIRUBIN TOTAL 0.4 mg/dL (0.2-1.0); CALCIUM 8.6 mg/dL (8.5-10.1); CARBON DIOXIDE,CO2 25.9 mmol/L (21.0-32.0); CREATININE 1.5 mg/dL (0.8-1.3); EST CRCL DRUG DOSING (CG) 79.02 mL/min; POTASSIUM,K 4.2 mmol/L (3.5-5.1)
[2023-02-03] MEDS ORDERED: Ondansetron 4 MG/2 ML SDV ONE (10:38)
[2023-02-03] MEDS ORDERED: Iopamidol 755 MG/ML 500 ML Multipack Bottle IVPUSH ONE (10:38)
[2023-02-03] MEDS ORDERED: Ondansetron 4 MG/2 ML SDV IVPUSH ONE (10:39)
[2023-02-03] MEDS ORDERED: Morphine 4 MG/ML Syringe IVPUSH ONE (11:08)
[2023-02-03] MEDS ORDERED: ceFAZolin 2 GM in Sodium Chloride 0.9% 50 ML IV ONE (11:34)
[2023-02-03 12:03] LABS: INR 1.05 (0.86-1.11)
[2023-02-03] MEDS ORDERED: HYDROmorphone 1 MG/ML Syringe IVPUSH ONE ×2 (12:23→12:57)
== END 2023-02-03 13:09 ==
LOC: MW.ED 09:30
DX: S01.511A Laceration without foreign body of lip, initial encounter (principal); Z23 Encounter for immunization; W22.8XXA Striking against or struck by other objects, initial encounter; Y92.69 Other specified industrial and construction area as the place of occurrence of the external cause
CPT/HCPCS: 36415; 70450; 70486; 71260; 72125; 73590; 74177; 80053; 85025; 85610; 90471; 90715; 96365; 96375; 96376; 99285; J0690; J1170; J2270; J2405; J3490; Q9967